=== PATIENT | female | born 1985 | race Two or more races ===

== ENCOUNTER 2018-02-26 12:10 | Emergency (ER) | payer OTHER ==
[2018-02-26 12:40] VITALS: BP 143/89; PULSE 79; TEMP 98.4; BMI 25.8
[2018-02-26] MEDS ORDERED: CYCLOBENZAPRINE HCL 10 MG TABLET (FP) PO ONE (13:46)
[2018-02-26] MEDS ORDERED: KETOROLAC TROMETHAMINE 60 MG/2 ML VIAL IM ONE (13:46)
[2018-02-26] MEDS ORDERED: KETOROLAC TROMETHAMINE 60 MG/2 ML VIAL ONE (14:03)
[2018-02-26] MEDS ORDERED: CYCLOBENZAPRINE HCL 10 MG TABLET (FP) ONE (14:03)
--- NOTE | 2018-02-26 15:47 | PDOC ---
History of Present Illness - General Chief Complaint: Pain Stated Complaint: PAIN,NECK/ARMS Time Seen by Provider: 02/26/18 13:23 Past History - Past Medical History Allergies/Adverse Reactions: Allergies Allergy/AdvReac Type Severity Reaction Status Date / Time No Known Allergies Allergy Verified 09/30/17 00:39 Home Medications: Ambulatory Orders Ondansetron [Zofran -] 4 mg PO BID #10 tablet 10/27/15 Sennosides/Docusate Sodium [Senna-Docusate Sodium Tablet] 1 each PO HS #7 tablet 10/27/15 Cyclobenzaprine HCl [Flexeril 10 mg] 10 mg PO TID #9 tablet 02/26/18 Naproxen 500 mg PO BID #20 tablet. 02/26/18 Asthma: Yes Cancer: No Cardiac Disorders: No COPD: No Diabetes: Yes (DIET CONTROLLED.) HTN: Yes Seizures: No Thyroid Disease: No - Reproductive History Cervical CA: No Dysfunctional Uterine Bleeding: No Ectopic : No Endometrial CA: No Polycystic Ovaries: No Therapeutic (s) & number: No Tubal Ligation: No - Suicide/Smoking/Psychosocial Hx Smoking Status: No Smoking History: Never smoked Have you smoked in the past 12 months: No Number of Cigarettes Smoked Daily: 0 Information on smoking cessation initiated: No Hx Alcohol Use: No Drug/Substance Use Hx: No Substance Use Type: None Hx Substance Use Treatment: No *Physical Exam - Vital Signs Last Vital Signs Temp Pulse Resp BP Pulse Ox 98.4 F 79 18 143/89 100 02/26/18 12:38 02/26/18 12:38 02/26/18 12:38 02/26/18 12:38 02/26/18 12:38 Moderate Sedation - Procedure Monitoring Vital Signs: Procedure Monitoring Vital Signs Temperature 98.4 F 02/26/18 12:38 Pulse Rate 79 02/26/18 12:38 Respiratory Rate 18 02/26/18 12:38 Blood Pressure 143/89 02/26/18 12:38 O2 Sat by Pulse Oximetry (%) 100 02/26/18 12:38 ED Treatment Course - RADIOLOGY Radiology Studies Ordered: Category Date Time Status SPINE-CERVICAL [RAD] Stat Radiology 02/26/18 13:45 Taken - Medications Given in the ED: ED Medications Discontinued Medications Generic Name Dose Route Start Last Admin Trade Name Freq PRN Reason Stop Dose Admin Cyclobenzaprine HCl 5 mg 12/04/18 13:46 02/26/18 14:14 Flexeril - PO 02/26/18 13:47 5 mg ONCE ONE Administration Ketorolac Tromethamine 60 mg 02/26/18 13:46 02/26/18 14:13 Toradol Injection - IM 02/26/18 13:47 60 mg ONCE ONE Administration Medical Decision Making - Medical Decision Making 02/26/18 15:44 33-year-old female, no significant history, here with neck pain. Patient states for the past month she has had diffuse neck pain radiating into both of her shoulders. Unable to describe pain, 6-7 out of 10 at its worse, constant and worse when turning head. No upper extremity weakness, sensory changes, DAVID or dizziness. Denies any trauma or other obvious inciting factors. States she is seeking medical evaluation today for the first time as pain has gradually worsened. Taking Motrin with no relief. No history of similar pain. See exam Diffuse neck pain x 1 month No obvious inciting factors Exam only notable for LROM to neck 2/2 pain -pain control -xray cspine -anticipate dc w/ pmd f/u *DC/Admit/Observation/Transfer Diagnosis at time of Disposition: Neck pain Shoulder pain Qualifiers: Chronicity: acute Laterality: bilateral Qualified Code(s): M25.511 - Pain in right shoulder; M25.512 - Pain in left shoulder - Discharge Dispostion Disposition: HOME Condition at time of disposition: Improved - Prescriptions Prescriptions: Cyclobenzaprine HCl [Flexeril 10 mg] 10 mg PO TID #9 tablet Naproxen 500 mg PO BID #20 tablet.dr - Referrals Referrals: Bhaskar Mitchell MD [Primary Care Provider] - - Patient Instructions Printed Discharge Instructions: DI for Neck Pain Additional Instructions: The source of your neck and shoulder pain are unclear at this time, but you will need further evaluation by her PMD if pain persists. Your neck x-ray did not show any obvious abnormality. Take pain medication as directed - Post Discharge Activity Forms/Work/School Notes: Back to Work
== END 2018-02-26 15:49 | disposition home or self-care (01) ==
LOC: JERFT 12:10
PROC: 3E0233Z Introduction of Anti-inflammatory into Muscle, Percutaneous Approach (ICD-10-PCS; principal; 2018-02-26)
DX: M54.2 Cervicalgia (principal); I10 Essential (primary) hypertension; E11.9 Type 2 diabetes mellitus without complications; J45.909 Unspecified asthma, uncomplicated
CPT/HCPCS: 72050-TC-FY; 96372; 99281-25

== ENCOUNTER 2018-06-07 17:35 | Emergency (ER) | payer OTHER ==
--- NOTE | 2018-06-07 17:39 | PDOC ---
Rapid Medical Evaluation Chief Complaint: Blood Pressure Problem Time Seen by Provider: 06/07/18 17:38 Medical Evaluation: Allergies Allergy/AdvReac Type Severity Reaction Status Date / Time No Known Allergies Allergy Verified 06/07/18 17:37 06/07/18 17:38 I performed a brief in-person evaluation of this patient. Chief complaint: Headache, HTN Pertinent physical exam findings: No focal neurologic deficits, BP 157/95 I have ordered the following: Pgu Patient to proceed to the ED for further evaluation. Discharge Disposition - Diagnosis Hypertension - Referrals - Patient Instructions - Post Discharge Activity
[2018-06-07 17:40] VITALS: BP 157/95; PULSE 82; TEMP 97; BMI 25.4
--- NOTE | 2018-06-07 19:18 | PDOC ---
History of Present Illness - General Chief Complaint: Blood Pressure Problem Stated Complaint: HYPERTENSION Time Seen by Provider: 06/07/18 17:38 History Source: Patient - History of Present Illness Initial Comments: 06/07/18 19:30 33-year-old female complaining of dizziness and headache for the last 1 week. Patient reports that her blood pressure has been running high. Patient has not followed up with her PCP and has past medical history of high blood pressure readings. Denies chest pain, fever, chills, nausea, vomiting. Patient reports that she had a URI symptoms last week which has been better. Past History - Past Medical History Allergies/Adverse Reactions: Allergies Allergy/AdvReac Type Severity Reaction Status Date / Time No Known Allergies Allergy Verified 06/07/18 17:37 Home Medications: Ambulatory Orders NK [No Known Home Medication] 06/07/18 Asthma: Yes Cancer: No Cardiac Disorders: No COPD: No Diabetes: Yes (DIET CONTROLLED.) HTN: Yes Seizures: No Thyroid Disease: No - Reproductive History Cervical CA: No Dysfunctional Uterine Bleeding: No Ectopic : No Endometrial CA: No Polycystic Ovaries: No Therapeutic (s) & number: No Tubal Ligation: No - Immunization History Immunization Up to Date: Yes - Suicide/Smoking/Psychosocial Hx Smoking Status: No Smoking History: Never smoked Have you smoked in the past 12 months: No Number of Cigarettes Smoked Daily: 0 Hx Alcohol Use: No Drug/Substance Use Hx: No Substance Use Type: None Hx Substance Use Treatment: No Review of Systems - Review of Systems Able to Perform ROS?: Yes Is the patient limited Monegasque proficient: No Constitutional: No: Symptoms Reported, See HPI, Chills, Diaphoresis, Fever, Loss of Appetite, Malaise, Night Sweats, Weakness, Weight Stable, Unintentional Wgt. Loss, Unexplained wgt Loss, Other Neurological: Yes: Headache, Dizziness. No: Symptoms reported, See HPI, Numbness, Paresthesia, Pre-Existing Deficit, Seizure, Tingling, Tremors, Weakness, Unsteady Gait, Ataxia, Other Psychiatric: No: Anxiety, Depression, Frequent Crying, Stressors, Sleep Pattern Change, Emotional Problems, Mood Swings, Change in Appetite, Other Endocrine: No: Symptoms Reported, See HPI, Excessive Sweating, Flushing, Intolerance to Cold, Intolerance to Heat, Increased Hunger, Increased Thirst, Increased Urine, Unexplained Weight Gain, Unexplained Weight Loss, Change in Weight, Other *Physical Exam - Vital Signs Last Vital Signs Temp Pulse Resp BP Pulse Ox 97.0 F L 82 16 157/95 100 06/07/18 17:37 06/07/18 17:37 06/07/18 17:37 06/07/18 17:37 06/07/18 17:37 - Physical Exam General Appearance: Yes: Appropriately Dressed Respiratory/Chest: positive: Lungs Clear, Normal Breath Sounds. negative: Chest Tender Cardiovascular: positive: Regular Rhythm, Regular Rate Gastrointestinal/Abdominal: positive: Normal Bowel Sounds, Soft. negative: Tender Extremity: positive: Normal Capillary Refill, Normal Inspection, Normal Range of Motion Integumentary: positive: Normal Color, Dry, Warm Neurologic: positive: Fully Oriented, Alert, Normal Mood/Affect Moderate Sedation - Procedure Monitoring Vital Signs: Procedure Monitoring Vital Signs Temperature 97.0 F L 06/07/18 17:37 Pulse Rate 82 06/07/18 17:37 Respiratory Rate 16 06/07/18 17:37 Blood Pressure 157/95 06/07/18 17:37 O2 Sat by Pulse Oximetry (%) 100 06/07/18 17:37 Heart Score/ECG Review - ECG Intrepretation Rhythm: Regular Rhythm Comment:: 06/07/18 20:27 NSR : 70bpm Medical Decision Making - Medical Decision Making 06/07/18 19:38 A: headache P: aspirin EKG: NSR : 70 bpm UA: no protein in urine will d/c to have close PCP follow up . monitor b/p at home 06/07/18 20:47 06/07/18 20:47 *DC/Admit/Observation/Transfer Diagnosis at time of Disposition: Hypertension Qualifiers: Hypertension type: unspecified Qualified Code(s): I10 - Essential (primary) hypertension - Discharge Dispostion Disposition: HOME - Referrals Referrals: Bhaskar Mitchell MD [Primary Care Provider] - - Patient Instructions Printed Discharge Instructions: How to Monitor Your Blood Pressure at Home Additional Instructions: reduce salt intake monitor your blood pressure daily follow up with your doctor as soon as possible. - Post Discharge Activity Forms/Work/School Notes: Back to Work
[2018-06-07] MEDS ORDERED: ASPIRIN 81 MG CHEWABLE TABLETS PO ONE (19:30)
[2018-06-07] MEDS ORDERED: ASPIRIN 81 MG CHEWABLE TABLETS ONE (19:58)
[2018-06-07 20:25] LABS: URINE APPEARANCE CLEAR; URINE BILIRUBIN NEGATIVE (<2.0 mg/dL); URINE COLOR STRAW; URINE GLUCOSE (UA) NEGATIVE (NEGATIVE); URINE KETONE NEGATIVE (NEGATIVE); URINE LEUK ESTERASE NEGATIVE (NEGATIVE); URINE NITRITE NEGATIVE (NEGATIVE); URINE PROTEIN NEGATIVE (NEGATIVE); URINE UROBILINOGEN NEGATIVE mg/dL (0.2-1.0)
--- NOTE | 2018-06-08 13:14 | EKG ---
Test Reason : Blood Pressure : / mmHG Vent. Rate : 070 BPM Atrial Rate : 070 BPM P-R Int : 138 ms QRS Dur : 092 ms QT Int : 402 ms P-R-T Axes : 057 021 035 degrees QTc Int : 434 ms NORMAL SINUS RHYTHM POSSIBLE LEFT ATRIAL ENLARGEMENT BORDERLINE ECG WHEN COMPARED WITH ECG OF 24-OCT-2015 18:57, VENT. RATE HAS DECREASED BY 51 BPM T WAVE AMPLITUDE HAS INCREASED IN ANTERIOR LEADS Confirmed by MD MARTIN, CONOR ([id number]) on 06/08/2018 1:14:08 PM Referred By: Confirmed By:CONOR SALAZAR MD
== END 2018-06-07 20:56 | disposition home or self-care (01) ==
LOC: JERFT 17:35
DX: I10 Essential (primary) hypertension (principal); E11.9 Type 2 diabetes mellitus without complications; J45.909 Unspecified asthma, uncomplicated
CPT/HCPCS: 81003; 81015; 93005; 93010; 99281-25

== ENCOUNTER 2019-10-01 09:35 | Emergency (ER) | payer OTHER ==
[2019-10-01 09:41] VITALS: BP 148/100; PULSE 79; TEMP 98.6; BMI 25.8
--- NOTE | 2019-10-01 09:42 | PDOC ---
Rapid Medical Evaluation Time Seen by Provider: 10/01/19 09:36 Medical Evaluation: Allergies Allergy/AdvReac Type Severity Reaction Status Date / Time No Known Allergies Allergy Verified 06/07/18 17:37 10/01/19 09:38 I have performed a brief in-person evaluation of this patient. The patient presents with a chief complaint of: L ear pain x 2 weeks. Completed 4 days of amox prescribed 2 weeks ago. Also given wax removal ear drops and tylenol but states pain persists. No otorrhea, f/c. Reports some dizziness now. No pmhx but told "My blood pressure was high" in the past, not on meds Pertinent physical exam findings:NAD, stable, defer rest of exam to FT provider I have ordered the following:nothing The patient will proceed to the ED for further evaluation Discharge Disposition - Diagnosis Ear pain, left - Referrals - Patient Instructions - Post Discharge Activity
--- NOTE | 2019-10-01 10:06 | PDOC ---
History of Present Illness - General Chief Complaint: Ear Problem Stated Complaint: EAR PROBLEM Time Seen by Provider: 10/01/19 09:36 History Source: Patient Exam Limitations: No Limitations - History of Present Illness Initial Comments: 10/01/19 10:08 34 dante old female with pmhx of HTN not on meds presenting with Left ear pain x 2 weeks nonradiating. Pt states she saw her primary care doctor 2 weeks ago who gave her a 4 day course of amoxicillin and earwax drops. Pt states that her symptoms improved and then worsened again. Pt states she noticed some clear discharge with odor from the ear and that loud noises have been bothering her. Pt denies hearing changes. Pt states she came today because she developed a fever with tmax 101 which she took tylenol for with relief. Pt otherwise denies: chills, syncope, lightheadedness, dizziness, headaches, changes in vision, changes in hearing, neck pain, chest pain, shortness of breath, palpitations, back pain, abdominal pain, nausea, vomiting, diarrhea. Past History - Medical History Allergies/Adverse Reactions: Allergies Allergy/AdvReac Type Severity Reaction Status Date / Time No Known Allergies Allergy Verified 10/01/19 09:41 Home Medications: Ambulatory Orders Cefdinir [Omnicef -] 300 mg PO BID #14 capsule 10/01/19 Ciprofloxacin HCl/Dexameth [Ciprodex Otic Suspension] 2 drop OT BID #1 bottle 10/01/19 Asthma: Yes Cancer: No Cardiac Disorders: No COPD: No Diabetes: Yes (DIET CONTROLLED.) HTN: Yes Seizures: No Thyroid Disease: No - Reproductive History Cervical CA: No Dysfunctional Uterine Bleeding: No Ectopic : No Endometrial CA: No Polycystic Ovaries: No Therapeutic (s) & number: No Tubal Ligation: No - Immunization History Immunization Up to Date: Yes - Psycho-Social/Smoking History Smoking Status: No Smoking History: Never smoked Have you smoked in the past 12 months: No Number of Cigarettes Smoked Daily: 0 - Substance Abuse Hx (Audit-C & DAST Scrn) How often the patient has a drink containing alcohol: Never Score: In Men: 4 or > Positive; In Women: 3 or > Positive: 0 Screen Result (Pos requires Nsg. Audit-10AR): Negative Review of Systems - Review of Systems Constitutional: Yes: Fever. No: Chills, Weakness HEENTM: Yes: Ear Discharge. No: Eye Pain, Blurred Vision, Tinnitus, Hearing Loss Respiratory: No: Shortness of Breath Cardiac (ROS): No: Chest Pain ABD/GI: No: Abdominal Distended : No: Burning, Dysuria Musculoskeletal: No: Back Pain Integumentary: No: Bruising Neurological: No: Numbness, Tingling, Dizziness *Physical Exam - Vital Signs Last Vital Signs Temp Pulse Resp BP Pulse Ox 98.6 F 79 18 148/100 99 10/01/19 09:38 10/01/19 09:38 10/01/19 09:38 10/01/19 09:38 10/01/19 09:38 - Physical Exam 10/01/19 10:11 Gen: AAOx 3, no acute distress, comfortable, no signs of respiratory distress HENT: atraumatic, normocephalic with no laceration or contusion. Nasal mucosa without erythema. Oropharynx without erythema or exudates. Mucous membranes moist. Right ear: TM without erythema or swelling canal without swelling or erythema nonttp to pinna and tragus Left ear: TTP to pinna and tragus, canal with erythema and crusting TM red and bulging no mastoid tenderness or erythema EYES: PERRL, EOM intact, conjunctiva pink NECK: supple; trachea midline; no JVD, no lymphadenopathy, or thyromegaly CV: RRR no murmurs, gallops, or rubs. CHEST: CTA b/l no wheezing, rales or rhonchi ABD: +BS/ND. no TTP; soft, no rebound, no guarding EXTREMITY: no cyanosis or erythema. 2+ dorsalis pedis, posterior tibial, and radial pulse. No pedal edema; no calf swelling or tenderness SKIN: no rash, warm and dry, no diaphoresis HEME: no purpura or ecchymosis NEURO: normal speech, CN II-XII intact, sensation intact, normal gait, no cerebellar deficits MS: 5/5 strength in all extremities, FROM intact in all extremities. Medical Decision Making - Medical Decision Making 10/01/19 10:14 34 year old female with left ear pain. VSS expect asymptomatic HTN, afebrile Signs of both otitis media and externa Will discharge will PO and otic ABX. Pt to follow up with PCP and ENT. Explained importance of follow up. Pt appears well and is safe and stable for discharge. Strict return precautions given. Supportive care instructions explained and given to pt. Reasons to return emergently to ER explained and given. Importance of follow up with PMD and other specialists as indicated stressed to pt. Pt verbalized understanding of instructions. Pt to follow up with PMD in 2 days. Discharge - Discharge Information Problems reviewed: Yes Clinical Impression/Diagnosis: Ear pain, left Condition: Stable Disposition: HOME - Admission No - Additional Discharge Information Prescriptions: Ciprofloxacin HCl/Dexameth [Ciprodex Otic Suspension] 2 drop OT BID #1 bottle Cefdinir [Omnicef -] 300 mg PO BID #14 capsule - Follow up/Referral Referrals: Raul Stanton MD [Staff Physician] - - Patient Discharge Instructions Patient Printed Discharge Instructions: DI for Otitis Media (Middle Ear Infection)-Child Additional Instructions: Please see your primary care doctor and ENT with out fail - Post Discharge Activity
== END 2019-10-01 10:18 | disposition home or self-care (01) ==
LOC: JER 09:35
DX: H92.02 Otalgia, left ear (principal)
CPT/HCPCS: 99283-25

== ENCOUNTER 2023-07-24 12:57 | Emergency (ER) | payer SELFPAY ==
[2023-07-24 13:22] VITALS: PULSE 85; RESP 17; BMI 27.8
[2023-07-24 13:57] LABS: EPI CELLS 18 /uL (0-25.1); HYALINE CASTS 1 /uL (0-3.1); URINE APPEARANCE CLEAR; URINE BACTERIA 398 /uL (0-1359); URINE BILIRUBIN NEGATIVE (NEGATIVE); URINE COLOR YELLOW; URINE GLUCOSE (UA) NEGATIVE (NEGATIVE); URINE KETONE NEGATIVE (NEGATIVE); URINE LEUK ESTERASE 1+ (NEGATIVE); URINE NITRITE NEGATIVE (NEGATIVE); URINE PROTEIN NEGATIVE (NEGATIVE); URINE RBC 28 /uL (0-23.9); URINE UROBILINOGEN 0.2 mg/dL (0.2-1.0); URINE WBC 48 /uL (0-25.8)
[2023-07-24 13:59] LABS: HCG,QUALITATIVE URINE Positive
[2023-07-24 14:36] LABS: BASO % 0.6 % (0-2.0); EOS % 2.3 % (0-4.5); HEMATOCRIT 40.2 % (32.4-45.2); HEMOGLOBIN 13.8 GM/dL (10.7-15.3); LYMPH % 18.5 % (8-40); MCH 31.5 pg (25.7-33.7); MCHC 34.3 g/dl (32.0-36.0); MEAN CELL VOLUME 92.1 fl (80-96); MEAN PLT VOLUME 9.4 fl (7.5-11.1); MONO % 6.7 % (3.8-10.2); NEUT % 71.9 % (42.8-82.8); PLATELET COUNT 220 10^3/uL (134-434); RBC 4.37 M/mm3 (3.60-5.2); RDW 13.7 % (11.6-15.6); WHITE BLOOD COUNT 8.5 K/mm3 (4.0-10.0)
[2023-07-24 14:46] LABS: INR 0.98 (0.83-1.09); PROTHROMBIN TIME (PATIENT) 11.1 SEC (9.7-13.0)
[2023-07-24 14:49] LABS: ACTIVATED PTT 27.6 SECONDS (25.2-36.5)
[2023-07-24 15:34] LABS: POTASSIUM 4.5 mmol/L (3.5-5.1)
[2023-07-24 15:36] LABS: CALCIUM 9.4 mg/dL (8.5-10.1)
[2023-07-24 15:37] LABS: ALBUMIN 3.4 g/dl (3.4-5.0); BLOOD UREA NITROGEN 8.9 mg/dL (7-18)
[2023-07-24 15:40] LABS: CREATININE 0.5 mg/dL (0.55-1.3)
[2023-07-24 15:41] LABS: BILIRUBIN,TOTAL 0.2 mg/dL (0.2-1)
[2023-07-24 15:42] LABS: TOT PROT 7.5 g/dl (6.4-8.2)
[2023-07-24] MEDS ORDERED: CEPHALEXIN MONOHYDRATE 500 MG CAPSULE (UD) ONE (16:47)
[2023-07-24] MEDS: CEPHALEXIN 250 MG/5 ML ORAL SUSPENSION PO ONE (16:51)
[2023-07-24 17:26] VITALS: BP 137/88; TEMP 99
== END 2023-07-24 17:35 | disposition home or self-care (01) ==
LOC: JER 12:57
DX: O26.891 Other specified pregnancy related conditions, first trimester (principal); R10.9 Unspecified abdominal pain; O23.41 Unspecified infection of urinary tract in pregnancy, first trimester; Z3A.12 12 weeks gestation of pregnancy
CPT/HCPCS: 36415; 76801-TC; 80053; 81003; 84702; 84703; 85025; 85610; 85730; 86850; 86900; 86901; 87086; 99284-25

== ENCOUNTER 2024-01-19 03:30 | Inpatient (IN) | payer BC, OTHER ==
[2024-01-19] MEDS: LACTATED RINGERS SOLUTION 1,000 ML/1,000 ML INFUS.BAG IV SCH (04:00)
[2024-01-19 04:16] LABS: BASO % 0.6 % (0-2.0); HEMATOCRIT 34.1 % (32.4-45.2); HEMOGLOBIN 11.5 GM/dL (10.7-15.3); LYMPH % 18.7 % (8-40); MCH 29.4 pg (25.7-33.7); MCHC 33.6 g/dl (32.0-36.0); MEAN CELL VOLUME 87.5 fl (80-96); MEAN PLT VOLUME 10.2 fl (7.5-11.1); MONO % 8.2 % (3.8-10.2); NEUT % 70.5 % (42.8-82.8); PLATELET COUNT 147 10^3/uL (134-434); RDW 15.3 % (11.6-15.6); WHITE BLOOD COUNT 7.8 K/mm3 (4.0-10.0)
[2024-01-19] MEDS ORDERED: FENTANYL/BUPIVACAINE/NS/PF - PCEA - 50 ML DISP.SYRIN EP ONE (04:21)
[2024-01-19 04:23] LABS: INR 0.94 (0.83-1.09); PROTHROMBIN TIME (PATIENT) 10.8 SEC (9.7-13.0)
[2024-01-19] MEDS ORDERED: OXYTOCIN 20 UNITS in 0.9% NS 20 UNIT/1,000 ML INFUS.BAG IV ONE ×2 (04:23→04:44)
[2024-01-19] MEDS ORDERED: LIDOCAINE HCL 1% PRESERVATIVE FREE - 30ML VIAL ONE (04:23)
[2024-01-19 04:26] LABS: ACTIVATED PTT 24.6 SECONDS (25.2-36.5)
[2024-01-19 04:36] LABS: CALCIUM 8.3 mg/dL (8.5-10.1)
[2024-01-19 04:40] LABS: CREATININE 0.8 mg/dL (0.55-1.3)
[2024-01-19] MEDS ORDERED: BUPIVACAINE HCL/PF 0.25% (2.5MG/ML) 10 ML VIAL ONE (04:41)
[2024-01-19] MEDS: OXYTOCIN 20 UNITS in 0.9% NS 20 UNIT/1,000 ML INFUS.BAG IV SCH (05:05)
[2024-01-19] MEDS ORDERED: WITCH HAZEL 50% (TUCKS) 40 PAD/JAR PAD TP PRN (05:28)
[2024-01-19] MEDS ORDERED: oxyCODONE HCL 5 MG TABLET PO PRN (05:28)
[2024-01-19] MEDS ORDERED: BENZOCAINE 20% 57 GM BOTTLE TP PRN (05:28)
[2024-01-19] MEDS ORDERED: BENZOCAINE 28 GM HEMORRHOIDAL OINTMENT TP PRN (05:28)
[2024-01-19] MEDS ORDERED: METHYLERGONOVINE MALEATE 0.2 MG/1 ML AMP IM PRN (05:28)
[2024-01-19] MEDS ORDERED: BISACODYL 10 MG SUPP.RECT RC PRN (05:28)
[2024-01-19 05:38] LABS: CORD BASE EXCESS -4.7 mmol/L (0-2); CORD BASE EXCESS -6.6 mmol/L (0-2); CORD HCO3 20.3 mmHg (20-29); CORD PCO2 38.1 mmHg (30-78); CORD PCO2 49.5 mmHg (30-78); CORD pH 7.245 (7.14-7.44); CORD pH 7.345 (7.14-7.44)
[2024-01-19] MEDS: IBUPROFEN 600 MG TABLET (FP) PO PRN (05:45)
[2024-01-19 06:52] VITALS: BMI 29.6
[2024-01-19] MEDS ORDERED: ACETAMINOPHEN 325 MG TABLET (FP) ONE (07:32)
[2024-01-19] MEDS: ACETAMINOPHEN 325 MG TABLET (FP) PO PRN (07:37)
[2024-01-19 09:15] VITALS: RESP 18
[2024-01-19] MEDS: PRENATAL VITAMINS W/ FOLIC ACID TABLET (FP) PO SCH (09:35)
[2024-01-20 07:19] LABS: BASO % 0.5 % (0-2.0); EOS % 2.8 % (0-4.5); HEMATOCRIT 31.3 % (32.4-45.2); HEMOGLOBIN 10.3 GM/dL (10.7-15.3); LYMPH % 20.9 % (8-40); MCH 29.3 pg (25.7-33.7); MCHC 32.8 g/dl (32.0-36.0); MEAN CELL VOLUME 89.4 fl (80-96); MEAN PLT VOLUME 10.3 fl (7.5-11.1); MONO % 6.1 % (3.8-10.2); NEUT % 69.7 % (42.8-82.8); PLATELET COUNT 129 10^3/uL (134-434); RBC 3.51 M/mm3 (3.60-5.2); RDW 15.4 % (11.6-15.6); WHITE BLOOD COUNT 9.6 K/mm3 (4.0-10.0)
[2024-01-20] MEDS: SENNOSIDES/DOCUSATE COMBO (SENNA PLUS) TABLET (UD) PO PRN (22:09)
[2024-01-21 08:45] VITALS: BP 139/83; PULSE 88; TEMP 94.8
== END 2024-01-21 14:10 | disposition home or self-care (01) | DRG 560 ==
LOC: JLDR 03:30 → J3W 07:50
PROVIDERS: ADMIT Obstetrics & Gynecology; ATTEND Obstetrics & Gynecology
PROC: 10E0XZZ Delivery of Products of Conception, External Approach (ICD-10-PCS; principal; 2024-01-19)
DX: O24.424 Gestational diabetes mellitus in childbirth, insulin controlled (principal); O16.4 Unspecified maternal hypertension, complicating childbirth; O69.81X0 Labor and delivery complicated by cord around neck, without compression, not applicable or unspecified; Z3A.37 37 weeks gestation of pregnancy; Z37.0 Single live birth
CPT/HCPCS: 36415; 36600; 59409; 80048; 82803; 85025; 85461; 85610; 85730; 86780; 86850; 86900; 86901; 96372; J2790